=== PATIENT | female | born 1985 | race Caucasian/White ===

== ENCOUNTER 2017-05-23 13:01 | Emergency (ER) | payer OTHER ==
[~2017-05-23] VITALS: Wt 81.8 kg
[2017-05-23] MEDS ORDERED: SOD CHLORIDE 0.9% 1,000 ML IV ONE (15:09)
--- NOTE | 2017-05-23 15:24 | ERA ---
ER Documentation Chief Complaint Date/Time DATE: 05/23/17 TIME: 15:23 Chief Complaint rectal bleeding x2 wks, seen @ [facility] for same complnt HPI This is a 31-year-old female that presents to the emergency department complaining of bright red blood per rectum that has been intermittent for the past 2 weeks. She has been seen and evaluated in other hospitals for the same complaint. She has gone to [facility] during this time. The patient had a previous hysterectomy in September 2016. She indicates that during every bowel movement she will notice bright red blood per rectum. She denies any vaginal bleeding. She denies any abdominal pain or weight loss. She is CT scan of the abdomen which indicated no acute pathology. She has seen Dr. Lim from and is scheduled for colonoscopy to be performed at [facility] on July 13, 2012. She denies any fever shaking or chills. She denies any recent travel. She has no changes in bladder or bowel frequency and she denies any constipation or diarrhea. She indicates she presents to the emergency department today she is going out of town from June 04 - June 19 to [place] and would like the colonoscopy to be performed prior to her travel ROS All systems reviewed and are negative except as per history of present illness. Medications Home Meds Reported Medications Multivitamins* (Theragran*) 1 Tab Tab, 1 TAB PO DAILY, TAB MULTIVITAMIN OVER 50 05/23/17 Epinephrine (Epipen 2-Karel) 0.3 Mg/0.3 Ml Pen.injctr, 0.3 MG IM DIRECTED Y for ALLERGIC REACTION, #1 EA 05/23/17 Calcium Carbonate/Vitamin D3 (Calcium 500 mg Chewable Tablet) 1 Each Tab.chew, 1 EACH PO BID, TAB.CHEW 05/23/17 Estrogens Conjugated* (Premarin*) 0.3 Mg Tablet, 0.3 MG PO DAILY, TAB 05/23/17 Allergies Allergies: Coded Allergies: hydromorphone (Verified Allergy, Unknown, 05/23/17) iodine (Verified Allergy, Unknown, 05/23/17) Uncoded Allergies: SEAFOOD (Allergy, Unknown, 09/24/16) PMhx/Soc History of Surgery: Yes (APPY,C SECTION X1, HYSTERECTOMY) Anesthesia Reaction: No Hx Neurological Disorder: No Hx Respiratory Disorders: No Hx Cardiac Disorders: Yes (VENTRICULAR TRIGEMANY) Hx Psychiatric Problems: No Hx Miscellaneous Medical Probl: No Hx Alcohol Use: Yes (OCC) Hx Substance Use: No Hx Tobacco Use: No Smoking Status: Never smoker Physical Exam Vitals Vital Signs Date Time Temp Pulse Resp B/P Pulse Ox O2 Delivery O2 Flow Rate FiO2 05/23/17 18:54 67 16 114/85 99 Room Air 05/23/17 17:00 98.3 60 20 112/73 100 Room Air 05/23/17 16:00 98.3 64 20 118/77 98 Room Air 05/23/17 13:04 98.9 78 20 141/84 99 Physical Exam Constitutional:Well-developed. Well-nourished. HEENT:Normocephalic. Atraumatic.Pupils were equal round reactive to light. Moist mucous membranes.No tonsillar exudates. No conjunctival pallor Neck: No nuchal rigidity. No lymphadenopathy. No posterior cervical spine tenderness or step-offs. Respiratory: Not using accessory muscles of respiration.Lungs were clear to auscultation bilaterally. No rhonchi. No rales. No wheezing. Cardiovascular: Regular rate regular rhythm.No murmurs. No rubs were appreciated.S1, S2 normal. Distal pulses are palpable 2+ bilaterally. GI: Abdomen was soft. Nontender. Non Distended. No pulsatile abdominal masses or bruits. No rebound. No guarding. Bowel sounds were present and normal. : Rectal exam was performed by myself and the patient denied a female nurse happened to be present. Fecal occult blood test was positive. Patient had anal skin tags but no evidence of internal/external hemorrhoids. No gross blood per rectum Muscle skeletal: Full range of motion of both the upper and lower extremities bilaterally.Normal muscle tone.No assymetrical calf tenderness or swelling. Skin: No petechia, no purpura. No lesions on the palms or the soles of the feet. No maculopapular rash. NEURO: Patient was alert, awake, orientated x3.No facial droop. Gait observed and normal with no ataxia.Speech had regular rate and rhythm. No focal neurological deficits. Result Diagram: 05/23/17 1530 05/23/17 1530 Results 24 hrs Laboratory Tests Test 05/23/17 15:30 White Blood Count 9.610^3/ul Red Blood Count 5.0910^6/ul Hemoglobin 15.4g/dl Hematocrit 47.7% Mean Corpuscular Volume 93.7fl Mean Corpuscular Hemoglobin 30.3pg Mean Corpuscular Hemoglobin Concent 32.3g/dl Red Cell Distribution Width 12.6% Platelet Count 80297^3/UL Mean Platelet Volume 11.5fl Neutrophils % 63.5% Lymphocytes % 27.2% Monocytes % 6.5% Eosinophils % 1.7% Basophils % 0.7% Neutrophils # 6.110^3/ul Lymphocytes # 2.610^3/ul Monocytes # 0.610^3/ul Eosinophils # 0.210^3/ul Basophils # 0.110^3/ul Nucleated Red Blood Cells # 0.010^3/ul Sodium Level 148mmol/L Potassium Level 4.5mmol/L Chloride Level 103mmol/L Carbon Dioxide Level 29mmol/L Anion Gap 21 Blood Urea Nitrogen 18mg/dl Creatinine 0.71mg/dl Glucose Level 99mg/dl Calcium Level 9.7mg/dl Total Bilirubin 0.4mg/dl Direct Bilirubin 0.00mg/dl Indirect Bilirubin 0.4mg/dl Aspartate Amino Transf (AST/SGOT) 28IU/L Alanine Aminotransferase (ALT/SGPT) 56IU/L Alkaline Phosphatase 138IU/L Total Protein 8.3g/dl Albumin 4.5g/dl Globulin 3.80g/dl Albumin/Globulin Ratio 1.18 Current Medications Medications (Trade) Dose Ordered Sig/Lucretia Route PRN Reason Start Time Stop Time Status Last Admin Dose Admin Sodium Chloride (NS) 1,000 ml @ 40 mls/hr Q24H ONCE IV 05/23/17 15:09 05/24/17 15:08 05/23/17 16:06 Ondansetron HCl (Zofran Inj) 4 mg BRIDGE ORDER PRN IV NAUSEA AND/OR VOMITING 05/23/17 18:30 05/24/17 18:29 Acetaminophen (Tylenol Tab) 650 mg ER BRIDGE PRN PO MILD PAIN/FEVER 05/23/17 18:30 05/24/17 18:29 Procedures/MDM The patient presented to the emergency department with hematochezia, suggesting a lower gastrointestinal bleeding. My differential diagnosis included but was not limited to diverticulosis, cancer, polyps, colitis, internal or external hemorrhoids, IBD, and vascular etiologies such as angiodysplasia or aortocolonic fistula. The patient was placed on a distribution manager, continuous pulse oximetry, and IV access established by nursing staff. Patient received a liter bolus of normal saline. The patient is hemodynamically stable with a normal hemoglobin. This is been present for over 2 weeks and I did place a call to Dr. Mica BILLINGS who indicated the patient is already scheduled for an outpatient prep for a colonoscopy on July 16. I spoke with the [facility] physician Dr. Gant who kindly stated he will arrange for an outpatient colonoscopy to be performed prior to the patient's travel to [place]. I did feel the patient's symptoms were result of a stable rectal bleed that will be further evaluated with her outpatient colonoscopy to be safe for discharge. The patient was discharged home in fair condition. They were instructed to return to the emergency department at any time if there was any worsening of their condition. The patient stated they would follow up with their PCP in the next 24-48 hours to initiate a suitable medication regimen under the care of their PCP as well as to allow their PCP to monitor any drug reactions. The patient was discharged home with prescriptions after they gave informed consent to the new medication. They were also fully informed by myself on the adverse effects and adverse drug interactions in order to provide adequate safeguards to prevent possible adverse reactions to medications. Departure Diagnosis: Primary Impression: Rectal bleed BLAYNE DIETZ May 23, 2017 15:24
[2017-05-23 15:35] LABS: ADD SCAN DIFF NO
[2017-05-23 15:38] LABS: BASOPHIL # 0.1 10^3/ul (0.0-0.1); BASOPHILS % 0.7 % (0.0-2.0); EOSINOPHILS # 0.2 10^3/ul (0.0-0.5); EOSINOPHILS % 1.7 % (0.0-7.0); HEMATOCRIT 47.7 % (37.0-47.0); HEMOGLOBIN 15.4 g/dl (12.0-16.0); LYMPHOCYTES # 2.6 10^3/ul (0.8-2.9); LYMPHOCYTES % 27.2 % (15.0-51.0); MEAN CORPUSCULAR HEMOGLOBIN 30.3 pg (29.0-33.0); MEAN CORPUSCULAR HGB CONC 32.3 g/dl (32.0-37.0); MEAN CORPUSCULAR VOLUME 93.7 fl (82.0-101.0); MEAN PLATELET VOLUME 11.5 fl (7.4-10.4); MONOCYTE # 0.6 10^3/ul (0.3-0.9); MONOCYTES % 6.5 % (0.0-11.0); NEUTROPHIL # 6.1 10^3/ul (1.6-7.5); NEUTROPHILS % 63.5 % (39.0-77.0); PLATELET COUNT 226 10^3/UL (140-415); RED BLOOD COUNT 5.09 10^6/ul (4.20-5.40); RED CELL DISTRIBUTION WIDTH 12.6 % (11.5-14.5); WHITE BLOOD COUNT 9.6 10^3/ul (4.8-10.8)
[2017-05-23] MEDS ORDERED: PREM3 PO (15:55)
[2017-05-23] MEDS ORDERED: CALC-686 PO (15:56)
[2017-05-23 15:58] LABS: ALBUMIN 4.5 g/dl (3.3-4.9); ALBUMIN/GLOBULIN RATIO 1.18; BILIRUBIN,INDIRECT 0.4 mg/dl (0-1.1); BILIRUBIN,TOTAL 0.4 mg/dl (0.2-1.3); CALCIUM 9.7 mg/dl (8.4-10.2); CREATININE 0.71 mg/dl (0.44-1.00); POTASSIUM 4.5 mmol/L (3.5-5.1); TOTAL PROTEIN 8.3 g/dl (6.1-8.1)
[2017-05-23] MEDS ORDERED: EPIN0.3P4 IM (15:58)
[2017-05-23] MEDS ORDERED: MULTI PO (16:04)
[2017-05-23 17:00] VITALS: TEMP 98.3
[2017-05-23] MEDS ORDERED: ACETAMINOPHEN 325 MG TAB PO PRN (18:30)
[2017-05-23] MEDS ORDERED: ONDANSETRON 4 MG INJ IV PRN (18:30)
[2017-05-23 18:54] VITALS: BP 114/85; PULSE 67; RESP 16
== END 2017-05-23 19:55 | disposition home or self-care (01) ==
LOC: E/R 13:01
DX: K62.5 Hemorrhage of anus and rectum (principal)
CPT/HCPCS: 80053; 85025; 86850; 86900; 86901; J7030; 99284